=== PATIENT | female | born 2000 | race Caucasian/White ===

== ENCOUNTER 2023-12-05 11:32 | Emergency (ER) | payer MEDICAID ==
[~2023-12-05] VITALS: Ht 167.6 cm; Wt 58.6 kg
[2023-12-05 11:34] VITALS: BP 107/66; PULSE 89; RESP 16; TEMP 98.3; O2SAT 100
== END 2023-12-05 15:01 | disposition home or self-care (01) ==
LOC: ER 11:33
DX: S09.8XXA Other specified injuries of head, initial encounter (principal); W18.39XA Other fall on same level, initial encounter; Y93.89 Activity, other specified; Y92.89 Other specified places as the place of occurrence of the external cause; Y99.8 Other external cause status
CPT/HCPCS: 70450; 99284

== ENCOUNTER 2023-12-09 20:32 | Emergency (ER) | payer MEDICAID ==
[~2023-12-09] VITALS: Ht 167.6 cm; Wt 58.1 kg
[2023-12-09 20:50] VITALS: TEMP 98.6
[2023-12-09] MEDS: ondansetron 4mg rapidly disintigrating tab PO ONE (22:04)
[2023-12-09] MEDS: HYDROcodone/acetaminophen 5mg/325mg tablet PO ONE (22:04)
[2023-12-09 22:16] VITALS: BP 130/61; PULSE 62; RESP 14; O2SAT 98
[2023-12-09] MEDS ORDERED: CYCL5TAB PO (22:19)
[2023-12-09] MEDS ORDERED: ONDA4TAB12 PO (22:19)
== END 2023-12-09 22:30 | disposition home or self-care (01) ==
LOC: ER 20:32
DX: S06.0X0A Concussion without loss of consciousness, initial encounter (principal); G44.209 Tension-type headache, unspecified, not intractable; M54.9 Dorsalgia, unspecified; W19.XXXA Unspecified fall, initial encounter; Y93.89 Activity, other specified; Y92.89 Other specified places as the place of occurrence of the external cause; Y99.8 Other external cause status
CPT/HCPCS: 99284